=== PATIENT | female | born 1965 | race African-American/Black ===

== ENCOUNTER 2020-02-23 11:11 | Inpatient (IN) | payer MEDICAID, OTHER ==
[~2020-02-23] VITALS: Ht 172.7 cm; Wt 85.4 kg
[2020-02-23] MEDS ORDERED: methylPREDNISolone SOD SUCC 125 MG/2 ML VL ONE (11:15)
[2020-02-23] MEDS ORDERED: methylPREDNISolone SOD SUCC 125 MG/2 ML VL IV ONE ×2 (11:30)
[2020-02-23 11:40] LABS: Basophils # (auto) 0 10 ^3/uL (0-0.2); Basophils % (auto) 0.3 % (0.0-2.0); Eosinophils # (auto) 0.1 10 ^3/uL (0-0.8); Hematocrit 47.8 % (36.0-46.0); Hemoglobin 15.7 g/dL (12.2-16.2); Lymphocytes # (auto) 2.8 10 ^3/uL (0.4-5.4); Lymphocytes % (auto) 35.9 % (10.0-50.0); Mean Corpuscular Hemoglobin 30.2 pg (28.0-32.0); Mean Corpuscular Hgb Conc. 32.9 g/dL (32.0-36.0); Mean Corpuscular Volume 91.9 fL (80.0-100.0); Monocytes # (auto) 0.5 10 ^3/uL (0-1.3); Monocytes % (auto) 6.8 % (0.0-12.0); Neutrophils # (auto) 4.4 10 ^3/uL (1.6-8.6); Nucleated Red Blood Cells % 0.2 %; Platelet Count (auto) 327 10^3/uL (140-450); Red Blood Cells 5.19 10^6/uL (4.0-5.20); Red Cell Distribution Width 14.2 % (11.8-14.3); White Blood Cell 7.8 10^3/uL (4.4-10.8)
[2020-02-23 12:02] LABS: Albumin 2.8 g/dL (3.4-5.0); Calcium 8.1 mg/dL (8.5-10.1); Magnesium 2.4 mg/dL (1.6-2.6); Potassium 3.2 mmol/L (3.5-5.1)
[2020-02-23 12:06] LABS: Bilirubin, Total 0.4 mg/dL (0.2-1.0); Total Protein 6.3 g/dL (6.4-8.2)
[2020-02-23] MEDS ORDERED: ONDANSETRON HCL 4 MG/2 ML VIAL IV PRN (15:45)
[2020-02-23] MEDS ORDERED: ACETAMINOPHEN 500 MG TAB PO PRN (15:45)
[2020-02-23] MEDS ORDERED: ALBUTEROL SULF 2.5 MG/0.5ML(0.5%) NEB SOLN NEB PRN (15:45)
[2020-02-23] MEDS ORDERED: SODIUM CHLORIDE 0.9% 1,000 ML IV ONE (15:45)
[2020-02-23] MEDS ORDERED: IPRATROPIUM BROM 0.5 MG/2.5ML INH SOL NEB PRN (15:45)
[2020-02-23] MEDS ORDERED: HYDROcodone-ACET 5/325MG TAB PO PRN (15:45)
[2020-02-23] MEDS ORDERED: NITROGLYCERIN 0.4 MG SL TAB SL PRN (15:45)
[2020-02-23] MEDS ORDERED: MORPHINE SULF INJ 2 MG/ML SYRINGE 1ML IV PRN ×2 (15:45)
[2020-02-23] MEDS: diphenhdrAMINE HCL 25 MG CAP PO SCH ×2 (16:05→22:04)
[2020-02-23 17:20] VITALS: BP 101/61
--- NOTE | 2020-02-23 17:20 | NUR ---
Telemetry admit from ER NAY BARNES admitted to Telemetry unit after SBAR received. Patient oriented to Katarina Cardenas, primary RN, unit, room, bed, and unit policies regarding patient care and visiting hours. Patient now on continuous telemetry monitoring, tele box # [id number] and telemetry reading on arrival to unit is sinus rhythm at 86. No S/S of distress or SOB. Paitnet denies pain. Updated on POC and instructed to call for assistance as needed, patient verbalized understanding. Bed locked in lowest position, side rails up x2, call light within reach. Will continue to monitor for changes.
[2020-02-23] MEDS ORDERED: GABA100C9 PO (17:57)
[2020-02-23] MEDS ORDERED: METH5T PO (17:57)
[2020-02-23] MEDS ORDERED: ALBU0.084 NEB (17:57)
[2020-02-23] MEDS ORDERED: CYCL10TA6 PO (17:57)
--- NOTE | 2020-02-23 18:34 | NUR ---
Respiratory note: PT ASSESSED FOR PRN MED NEB TX. PT IS CURRENTLY ON ROOM AIR: HR 84, RR 18, SPO2 93%. PT SHOWS NO S/S OF SOB OR RESPIRATORY DISTRESS. MED NEB TX NOT INDICATED AT THIS TIME. WILL CONTINUE TO MONITOR.
[2020-02-23] MEDS ORDERED: ALBUAER3 IN (18:44)
--- NOTE | 2020-02-23 18:46 | NUR ---
Closing Shift Note No S/S of distress or SOB. Patient laying flat in bed, respirations are even and unlabored. Will endorse care to noc shift RN
--- NOTE | 2020-02-23 19:20 | NUR ---
Opening Shift Note Received report from DICK Bray and assumed care of patient, awake and alert. No S/S of distress/SOB or pain. Instructed patient to call for assist if needed and patient verbalized understanding . Will continue to monitor .
[2020-02-23 19:25] VITALS: BP 101/61
[2020-02-23 22:00] VITALS: BP 110/53
[2020-02-24 05:00] VITALS: BP 143/90
--- NOTE | 2020-02-24 06:46 | NUR ---
Called/paged HANY Flowers paged re: K level 3.2 . Waiting for call back. Continue care.
--- NOTE | 2020-02-24 06:48 | NUR ---
returned call HANY Flowers returned call, updated on patient status and reason for call, orders received. Continue care.
[2020-02-24] MEDS ORDERED: POTASSIUM CHL 20 Meq TABLET PO ONE (07:00)
[2020-02-24] MEDS: diphenhdrAMINE HCL 25 MG CAP PO SCH (07:40)
--- NOTE | 2020-02-24 07:40 | NUR ---
Opening Shift Note Assumed care of patient, awake and alert. No S/S of distress/SOB or pain. Respirations are even and unlabored. Updated patient on POC and instructed to call for assistance as needed, patient verbalized understanding. Bed locked in lowest position, side rails up x2, call light within reach. Will continue to monitor.
[2020-02-24 09:00] VITALS: BP 131/75
[2020-02-24] MEDS ORDERED: methylPREDNISolone SOD SUCC 125 MG/2 ML VL IV SCH (10:00)
[2020-02-24] MEDS: FAMOTIDINE 20 MG TAB PO SCH ×2 (10:00→22:08)
--- NOTE | 2020-02-24 11:15 | NUR ---
Respiratory note: PRN MEDNEB TX ADMINISTERED DUE TO PT C/O SOB. HR 70, RR 20, SPO2 99% ON ROOM AIR. BREATH SOUNDS CLEAR/DIM ON AUSCULTATION. NO S/S OF RESPIRATORY DISTRESS NOTED POST-TX. PT AWARE TO CALL FOR RT AGAIN IF NEEDED.
[2020-02-24 13:00] VITALS: BP 117/63
[2020-02-24 15:04] LABS: BUN/Creatinine Ratio 10.2; Calcium 8.7 mg/dL (8.5-10.1); Potassium 4.2 mmol/L (3.5-5.1)
[2020-02-24] MEDS ORDERED: TEMAZEPAM 15 MG CAP PO PRN (15:45)
[2020-02-24 17:00] VITALS: BP 133/79
[2020-02-24] MEDS ORDERED: FLUT110A INH (17:18)
[2020-02-24] MEDS ORDERED: IBUP600T27 PO (17:19)
[2020-02-24] MEDS ORDERED: OMEP-260 PO (17:20)
[2020-02-24] MEDS ORDERED: diphenhdrAMINE HCL 50 MG/1 ML VL IV PRN (18:30)
--- NOTE | 2020-02-24 19:05 | NUR ---
Respiratory note: ASSESSED PT FOR PRN TX PT WAS AWAKE AND ALERT, NO RESP DISTRESS NOTED. HR 91, RR 16, SPO2 98% ON ROOM AIR/ BS ARE CLEAR T/O. NO INDICATION FOR TX AT THIS TIME. PT KNOWS TO HAVE RT PAGED IF TX IS NEEDED.
--- NOTE | 2020-02-24 19:20 | NUR ---
Opening Shift Note Assumed care of patient, awake and alert. No S/S of distress/SOB or pain reported at this time, currently on room air, lungs clear, IV patent and benign to left hand. Instructed on POC and to call for assist PRN, call light within reach, will continue to monitor for changes Q1hr and PRN.
[2020-02-24 20:00] VITALS: BP 138/66
--- NOTE | 2020-02-24 20:30 | NUR ---
ACTIVITY PT ASSISTED TO BATHROOM, GAIT STEADY, NO C/O SOB OR PAIN, CONT CARE
[2020-02-24 22:00] VITALS: BP 138/66
[2020-02-24] MEDS: methylPREDNISolone SOD SUCC 40 MG/ML VL IV SCH (22:07)
[2020-02-25 05:00] VITALS: BP 125/77
[2020-02-25 06:50] LABS: Calcium 9.5 mg/dL (8.5-10.1); Potassium 4.1 mmol/L (3.5-5.1)
[2020-02-25 07:05] LABS: BUN/Creatinine Ratio 10.5
[2020-02-25 09:00] VITALS: BP 132/77
[2020-02-25] MEDS: methylPREDNISolone SOD SUCC 40 MG/ML VL IV SCH (09:03)
[2020-02-25] MEDS ORDERED: METH4PAK PO (12:17)
[2020-02-25 13:00] VITALS: BP 119/79
--- NOTE | 2020-02-25 14:40 | NUR ---
DISCHARGE INSTRUCTIONS PROVIDED TO PT. PT VERBALIZED UNDERSTANDING FOR FOLLOW UP APPOINTMENT. EDUCATIONAL MATERIAL PROVIDED, ALL QUESTIONS AND CONCERNS ADDRESSED. IV CATHETER DC'D, CATHETER INTACT, NO PHLEBITIS, TELE BOX REMOVED AND RETURNED TO TELE DEPT. PT SAFELY ESCORTED OUT OF UNIT.
== END 2020-02-25 14:50 | disposition home or self-care (01) | DRG 811 ==
LOC: EDBD 11:11 → EDSEX 11:11 → ER 11:11 → TELE 11:12 → TELE-WESTW 17:08
PROVIDERS: ADMIT Nurse Practitioner Acute Care; ATTEND Internal Medicine
DX: T78.2XXA Anaphylactic shock, unspecified, initial encounter (principal); N17.0 Acute kidney failure with tubular necrosis; E88.09 Other disorders of plasma-protein metabolism, not elsewhere classified; N18.3 Chronic kidney disease, stage 3 (moderate); E66.9 Obesity, unspecified; E05.90 Thyrotoxicosis, unspecified without thyrotoxic crisis or storm; F17.210 Nicotine dependence, cigarettes, uncomplicated; J44.9 Chronic obstructive pulmonary disease, unspecified; Z79.899 Other long term (current) drug therapy; Z68.28 Body mass index [BMI] 28.0-28.9, adult
CPT/HCPCS: 36415; 71045; 80048; 80053; 83735; 84443; 85025; 94640; 99291; G0378; J2405